=== PATIENT | female | born 1995 | race Caucasian/White ===

== ENCOUNTER 2016-04-26 14:36 | Emergency (ER) | payer BC ==
[~2016-04-26] VITALS: Ht 177.8 cm; Wt 66.2 kg
[2016-04-26 14:37] VITALS: TEMP 36.9; Ht 177.8 cm; Wt 66.2 kg
[2016-04-26] MEDS ORDERED: ONDANSETRON INJ 2 MG/ML 2 ML VIAL IV STA ×2 (14:51→16:34)
[2016-04-26] MEDS ORDERED: SODIUM CHLORIDE 0.9% 1000ML 1,000 ML IV ONE ×2 (15:00→16:45)
--- NOTE | 2016-04-26 15:17 | EMERGENCY ROOM VISIT NOTE ---
History First contact with patient: 14:41 Chief Complaint: ABDOMINAL PAIN Stated Complaint: ABD. PAIN, VOMITING History of Present Illness The patient is a 21 year old female who presents to the Emergency Room with complaints of intractable nausea and vomiting this morning with right sided abdominal pain. She notes that last night she went out to the bar. She drank 6 units of beers. She stayed up late until 3-4 am and felt well at that time This morning she woke up at 7-8 feeling malaise, then at 10 am woke up with vomiting. The content of the vomit was bilious. After this bout of vomiting she notes a generalized right sided abdominal pain worse in the RLQ. She describes that "it feels like having a glass shard stuck in my right side". She also note concurrent pain in her lower back. The pain is 7/10 when she is still but up to 9/10 when she is moving around. She has not had a BM yet today. She has not urinated today so cannot determine if she has dysuria. In addition, she feels her chest is tight and that her breathing is slowing. She denies chest pain. She notes that she has been going out for the past 10 nights straight. Each time she drinks 8 units of alcohol in the form of voldka/soda. She denies concurrent drug use. She notes that she has an IUD so feels unlikely that she is . Review of Systems 10 point review of systems otherwise negative. 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 Patient tacchycardic Eyes: Pupils equal, round, and reactive to light. Extraocular muscles are intact. No proptosis. No photophobia. ENT: Mucous membranes are moist. Oropharynx is clear. No sinus tenderness. TMs are clear bilaterally. Cardiovascular: Heart with a regular rate and rhythm. Pulses are palpable and symmetric in all 4 extremities. No pedal edema appreciated. Respiratory: Lungs clear to auscultation bilaterally. No wheezes, rales, or rhonchi appreciated. No accessory muscle use. No retractions. No increased work of breathing. GI: Abdomen soft, nondistended. RLQ tenderness, no rebound. Diminished bowel sounds. Suprapubic tenderness. No abdominal hernias appreciated. No guarding. : No CVA tenderness appreciated. Musculoskeletal: No midline cervical or vertebral tenderness. No gross deformities. No bony tenderness. No calf swelling or tenderness. Integumentary: Warm, dry, no rashes appreciated. Neurological: Patient awake, alert, and oriented x 3. Cranial nerves two through 12 grossly intact. Motor 5 out of 5 strength bilateral upper and lower extremities. Lymph: No cervical lymphadenopathy appreciated. Medical Decision & Procedures ER Provider Diagnostic Interpretation: PELVIC ULTRASOUND, TRANSABDOMINAL AND TRANSVAGINAL HISTORY: Right lower quadrant abdominal pain. COMPARISON: None. FINDINGS: Uterus: 6.8 x 2.6 x 3.4 cm. The intrauterine device is in good position. Endometrial stripe: 3 mm in thickness. Right ovary: Normal in size and demonstrates normal color flow. Left ovary: Normal in size and demonstrates normal color flow. Miscellaneous:No pelvic free fluid. IMPRESSION: No significant abnormality identified within the pelvis. The intrauterine device appears to be in good position. Electronically signed by: Danilo Morgan M.D. 04/26/2016 4:06 PM Dictated Date/Time: 04/26/2016 4:05 PM APPENDIX ULTRASOUND HISTORY: Right lower quadrant abdominal pain. COMPARISON: None. FINDINGS: Transabdominal scanning of the right lower quadrant was performed. The appendix was not identified. There are no fluid collections or masses within the right lower quadrant. IMPRESSION: The appendix was not identified. Electronically signed by: Danilo Morgan M.D. 04/26/2016 4:04 PM Dictated Date/Time: 04/26/2016 4:04 PM ABDOMEN AND PELVIS CT WITH IV AND ORAL CONTRAST CT DOSE: 318.11 mGy.cm HISTORY: Right lower quadrant abdominal pain. TECHNIQUE: Multiaxial CT images of the abdomen and pelvis were performed following the use of intravenous and oral contrast. COMPARISON STUDY: None. FINDINGS: The lung bases are clear. The liver, spleen, gallbladder, pancreas, kidneys, and adrenal glands are within normal limits. No bowel wall thickening or obstruction. The pelvic organs are unremarkable. No suspicious lytic or blastic osseous lesions. The appendix appears to be within normal limits. There is no appendiceal fat stranding to suggest acute appendicitis. The tip of the appendix measures 5 mm in diameter. There is an intrauterine device which appears to be in good position. IMPRESSION: 1. No evidence for acute appendicitis. 2. No bowel wall thickening or obstruction. Electronically signed by: Danilo Morgan M.D. 04/26/2016 7:38 PM Dictated Date/Time: 04/26/2016 7:29 PM Laboratory Results 04/26/16 15:00 Red Blood Count 4.60, Mean Corpuscular Volume 89.6, Mean Corpuscular Hemoglobin 30.9, Mean Corpuscular Hemoglobin Concent 34.5, Mean Platelet Volume 9.2, Neutrophils (%) (Auto) 95.0, Lymphocytes (%) (Auto) 2.5, Monocytes (%) (Auto) 2.1, Eosinophils (%) (Auto) 0.1, Basophils (%) (Auto) 0.1, Neutrophils # (Auto) 13.30, Lymphocytes # (Auto) 0.35, Monocytes # (Auto) 0.30, Eosinophils # (Auto) 0.01, Basophils # (Auto) 0.01 04/26/16 15:00 Test 04/26/16 15:00 04/26/16 16:30 White Blood Count 14.00 K/uL (4.8-10.8) Red Blood Count 4.60 M/uL (4.2-5.4) Hemoglobin 14.2 g/dL (12.0-16.0) Hematocrit 41.2 % (37-47) Mean Corpuscular Volume 89.6 fL (80-100) Mean Corpuscular Hemoglobin 30.9 pg (25-34) Mean Corpuscular Hemoglobin Concent 34.5 g/dl (32-36) Platelet Count 253 K/uL (130-400) Mean Platelet Volume 9.2 fL (7.4-10.4) Neutrophils (%) (Auto) 95.0 % Lymphocytes (%) (Auto) 2.5 % Monocytes (%) (Auto) 2.1 % Eosinophils (%) (Auto) 0.1 % Basophils (%) (Auto) 0.1 % Neutrophils # (Auto) 13.30 K/uL (1.4-6.5) Lymphocytes # (Auto) 0.35 K/uL (1.2-3.4) Monocytes # (Auto) 0.30 K/uL (0.11-0.59) Eosinophils # (Auto) 0.01 K/uL (0-0.5) Basophils # (Auto) 0.01 K/uL (0-0.2) RDW Standard Deviation 43.6 fL (36.4-46.3) RDW Coefficient of Variation 13.3 % (11.5-14.5) Immature Granulocyte % (Auto) 0.2 % Immature Granulocyte # (Auto) 0.03 K/uL (0.00-0.02) Anion Gap 11.0 mmol/L (3-11) Est Creatinine Clear Calc Drug Dose 114.8 ml/min Estimated GFR () 120.3 Estimated GFR (Non- 103.8 BUN/Creatinine Ratio 10.1 (10-20) Calcium Level 9.3 mg/dl (8.5-10.1) Total Bilirubin 0.8 mg/dl (0.2-1) Direct Bilirubin 0.2 mg/dl (0-0.2) Aspartate Amino Transf (AST/SGOT) 23 U/L (15-37) Alanine Aminotransferase (ALT/SGPT) 22 U/L (12-78) Alkaline Phosphatase 91 U/L (45-117) Total Protein 8.3 gm/dl (6.4-8.2) Albumin 4.6 gm/dl (3.4-5.0) Lipase 109 U/L (73-393) Human Chorionic Gonadotropin, Qual NEG (NEG) Urine Color YELLOW Urine Appearance CLEAR (CLEAR) Urine pH 8.0 (4.5-7.5) Urine Specific [place] 1.017 (1.000-1.030) Urine Protein NEG (NEG) Urine Glucose (UA) NEG (NEG) Urine Ketones NEG (NEG) Urine Occult Blood NEG (NEG) Urine Nitrite NEG (NEG) Urine Bilirubin NEG (NEG) Urine Urobilinogen NEG (NEG) Urine Leukocyte Esterase TRACE (NEG) Urine WBC (Auto) 1-5 /hpf (0-5) Urine RBC (Auto) 0-4 /hpf (0-4) Urine Hyaline Casts (Auto) 1-5 /lpf (0-5) Urine Epithelial Cells (Auto) >30 /lpf (0-5) Urine Bacteria (Auto) 1+ (NEG) Urine Test NEG (NEG) Medications Administered Medications (Trade) Dose Ordered Sig/Ramu Route Start Time Stop Time Status Last Admin Dose Admin Sodium Chloride (Nss 1000ml) 1,000 ml @ 999 mls/hr Q1H1M ONCE IV 04/26/16 15:00 04/26/16 16:00 DC 04/26/16 15:17 999 MLS/HR Ondansetron HCl (Zofran Inj) 4 mg NOW STAT IV 04/26/16 14:51 04/26/16 14:55 DC 04/26/16 15:17 4 MG Ondansetron HCl (Zofran Inj) 4 mg NOW STAT IV 04/26/16 16:34 04/26/16 16:36 DC 04/26/16 17:43 4 MG Morphine Sulfate 4 mg 4 mg NOW STAT IV 04/26/16 16:34 04/26/16 16:36 DC 04/26/16 17:44 4 MG Sodium Chloride (Nss 1000ml) 1,000 ml @ 999 mls/hr Q1H1M ONCE IV 04/26/16 16:45 04/26/16 17:45 DC 04/26/16 17:44 999 MLS/HR Morphine Sulfate (MoRPHine SULFATE INJ) 2 mg NOW STAT IV 04/26/16 19:54 04/26/16 19:57 DC 04/26/16 20:18 2 MG Trimethoprim/ Sulfamethoxazole (Septra Ds 800/ 160MG Tab) 1 tab NOW ONCE PO 04/26/16 20:15 04/26/16 20:16 DC 04/26/16 20:18 1 TAB Ondansetron HCl (ZOFRAN ODT 4MG Home Pack) 1 homepack UD ONCE PO 04/26/16 20:15 04/26/16 20:16 DC 04/26/16 20:18 1 HOMEPACK ED Course 14:30 - Patient evaluated by me Orders: CBC, CMP, Lipase, UA, Upreg NSS 1000 ml bolus 4 mg Zofran once 15:00 - Patient discussed with attending physician 15:15 - Seen by Dr. Reece; US abdomen ordered 16:00 - US Appendix negative; US pelvis WNL Labs reviewed Mild leukocytosis at 14 Renal function WNL; LFT WNL; normal lipase; negative serum bHCG 14:30 - Patient re-assessed; pain feels worse and spreading across abdomen CT abdom with IV contast ordered 4 mg Morphine + 4 mg Zofran one 19:45 - Additional 2 mg morphine ordered for pain CT abdomen completed and read; interpretation as grossly normal Discussed findings with patient; patient agreeable discharge home and close follow-up with PCP Reviewed UA; noted trace leukocyte esterase; possible UTI would treat emprically Single dose Bactrim DS in ED 20:00 - Discharge completed Patient to be discharged with homepak of Zofran Prescription for 5 days of Bactrim DS BID Medical Decision Differential for abdominal pain in the RLQ includes, Appendicitis, Cystitis, Pyelonephritis, Renal Stone, Ovarian torsion. With history of extensive alcohol use, also consider pancreatitis, hepatitis. Patient has IUD so unlikely but worth considering, , ectopic Reviewed lab. CBC notes mild leukocytosis at 14; otherwise normal Renal function is WNL; liver function WNL: normal lipase UA slightly abnormal with trace leukocyte esterase; query underlying UTI Ultrasound for appendicitis indeterminate --> follow-up CT was negative for acute appendicitis. Impression is most likely that symptoms are related to alcohol consumption with superimposing self-limited gastroenteritis. Will discharge with instructions to follow-up symptoms for next 12-24 hours and return if pain worsens. Will discharge with Zofran homepack. Will also treat empirically with Bactrim for 5 days and follow urine cultures taken in hospital. Patient was discharged in stable condition. She was strongly advised to abstain for alcohol for the short-term. Impression Primary Impression: Acute gastroenteritis Additional Impression: Urinary tract infection Ruled Out: Appendicitis Departure Information Dispostion Home / Self-Care Condition GOOD Prescriptions Sulfa/Trimethoprim (Bactrim Ds 800MG/160MG) Tab 1 TAB PO BID for 5 Days, #10 TAB Prov: Jose Garrido MD 04/26/16 Referrals No Doctor, Assigned (PCP) Patient Instructions [facility] Problem Qualifiers
[2016-04-26 15:25] LABS: BASO % 0.1 %; BASO ABS # 0.01 K/uL (0-0.2); COMPLETE YES; EOS % 0.1 %; HEMATOCRIT 41.2 % (37-47); IG% 0.2 %; LYMPH % 2.5 %; LYMPH ABS # 0.35 K/uL (1.2-3.4); MEAN CELL VOLUME 89.6 fL (80-100); MEAN CORPUSCULAR HEMOGLOBIN 30.9 pg (25-34); MEAN CORPUSCULAR HGB CONC 34.5 g/dl (32-36); MEAN PLATELET VOLUME 9.2 fL (7.4-10.4); MONO % 2.1 %; PLATELET COUNT 253 K/uL (130-400)
[2016-04-26] MEDS ORDERED: IUD'IUD INT UTER (15:36)
[2016-04-26] MEDS ORDERED: SERT-234 PO (15:37)
[2016-04-26 15:43] LABS: BUN/CREATININE RATIO 10.1 (10-20); CALCIUM 9.3 mg/dl (8.5-10.1); CREATININE 0.81 mg/dl (0.60-1.20); POTASSIUM 3.7 mmol/L (3.5-5.1)
[2016-04-26 15:58] LABS: PREG INTERNAL NEGATIVE QC NEG CLEAR BACKGROUND; PREG INTERNAL POSITIVE QC POS CONTROL LINE
--- NOTE | 2016-04-26 16:06 | DIAGNOSTIC IMAGING REPORT ---
APPENDIX ULTRASOUND HISTORY: Right lower quadrant abdominal pain. COMPARISON: None. FINDINGS: Transabdominal scanning of the right lower quadrant was performed. The appendix was not identified. There are no fluid collections or masses within the right lower quadrant. IMPRESSION: The appendix was not identified. Electronically signed by: Danilo Morgan M.D. 04/26/2016 4:04 PM Dictated Date/Time: 04/26/2016 4:04 PM
--- NOTE | 2016-04-26 16:07 | DIAGNOSTIC IMAGING REPORT ---
PELVIC ULTRASOUND, TRANSABDOMINAL AND TRANSVAGINAL HISTORY: Right lower quadrant abdominal pain. COMPARISON: None. FINDINGS: Uterus: 6.8 x 2.6 x 3.4 cm. The intrauterine device is in good position. Endometrial stripe: 3 mm in thickness. Right ovary: Normal in size and demonstrates normal color flow. Left ovary: Normal in size and demonstrates normal color flow. Miscellaneous:No pelvic free fluid. IMPRESSION: No significant abnormality identified within the pelvis. The intrauterine device appears to be in good position. Electronically signed by: Danilo Morgan M.D. 04/26/2016 4:06 PM Dictated Date/Time: 04/26/2016 4:05 PM
[2016-04-26] MEDS ORDERED: MoRPHine SULFATE 4 MG/ML 1 ML CARP\\VIAL IV STA (16:34)
[2016-04-26] MEDS ORDERED: OPTIRAY 320 IV PRN (16:45)
[2016-04-26 17:48] LABS: URINE APPEARANCE CLEAR (CLEAR); URINE BILIRUBIN NEG (NEG); URINE COLOR YELLOW; URINE EPITHELIAL CELL AUTO >30 /lpf (0-5); URINE NITRITE NEG (NEG); URINE SPECIFIC GRAVITY 1.017 (1.000-1.030); UROBILINOGEN NEG (NEG)
[2016-04-26 18:06] LABS: MANUAL MICROSCOPIC REQUIRED? NO; REVIEW REQ? NO
--- NOTE | 2016-04-26 19:40 | DIAGNOSTIC IMAGING REPORT ---
ABDOMEN AND PELVIS CT WITH IV AND ORAL CONTRAST CT DOSE: 318.11 mGy.cm HISTORY: Right lower quadrant abdominal pain. TECHNIQUE: Multiaxial CT images of the abdomen and pelvis were performed following the use of intravenous and oral contrast. COMPARISON STUDY: None. FINDINGS: The lung bases are clear. The liver, spleen, gallbladder, pancreas, kidneys, and adrenal glands are within normal limits. No bowel wall thickening or obstruction. The pelvic organs are unremarkable. No suspicious lytic or blastic osseous lesions. The appendix appears to be within normal limits. There is no appendiceal fat stranding to suggest acute appendicitis. The tip of the appendix measures 5 mm in diameter. There is an intrauterine device which appears to be in good position. IMPRESSION: 1. No evidence for acute appendicitis. 2. No bowel wall thickening or obstruction. Electronically signed by: Danilo Morgan M.D. 04/26/2016 7:38 PM Dictated Date/Time: 04/26/2016 7:29 PM
[2016-04-26] MEDS ORDERED: MoRPHine SULFATE 2 MG/ML CARP IV STA (19:54)
[2016-04-26] MEDS ORDERED: SULF800T23 PO (20:09)
[2016-04-26] MEDS ORDERED: SULFAMETHOXAZOLE/TRIMETHOPRIM DS 800/160MG TAB PO ONE (20:15)
[2016-04-26] MEDS ORDERED: ONDANSETRON HOME PACK 4MG OD TAB PO ONE (20:15)
[2016-04-26 20:43] VITALS: BP 122/82; PULSE 76; O2SAT 97
--- NOTE | 2016-04-26 21:45 | EMERGENCY ROOM VISIT NOTE ---
ED Visit Note First contact with patient: 14:41 Resident Physician Supervision Note: Dr. Garrido was resident physician during care of patient. I separately evaluated patient and did history and exam. I discussed the case with the resident and generally agree with the findings and plan. 21 yr old female with dehydration and vomiting s/p drinking last evening and being awake until 4am. She does have TTP over RLQ though doesn't quite seem surgical by exam. Worsening pain even after US was done. No evidence of torsion and symptoms not consistent with PID. US not able to visualize appendix. With worsening pain and mild WBC elevation felt CT would be necessary. No clear surgical findings on CT. Would suspect this it MSK in nature. Will d/c with plan rted in 12-24 hours if no improvement or worsening. There is norovirus in area which may be cause of this. Diagnosis: RLQ abdominal pain, acute Vomiting Documented By: Teddy Reece MD
== END 2016-04-26 20:49 | disposition home or self-care (01) ==
LOC: C.EDB 14:37
DX: K52.9 Noninfective gastroenteritis and colitis, unspecified (principal); N39.0 Urinary tract infection, site not specified